=== PATIENT | female | born 1995 | race Caucasian/White ===

== ENCOUNTER 2019-07-23 09:17 | Emergency (ER) | payer OTHER ==
--- NOTE | 2019-07-23 09:35 | ED Physician Documentation ---
PD HPI FEMALE - Stated complaint Stated Complaint: FEM - Chief complaint Chief Complaint: General - History obtained from History obtained from: Patient - History of Present Illness Timing - onset: How many days ago (few) Timing - duration: Days (few) Timing - details: Gradual onset, Still present Associated symptoms: Vaginal pain, Genital sore/lesion (Redness and swelling and tenderness at the left lower labial area consistent with prior Bartholin abscess that she has had. She has had a into the incised and drained couple of times in the past but not for a few years.). 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) - Past Surgical History Past Surgical History: No - Present Medications Home Medications: Ambulatory Orders Medication Instructions Recorded Confirmed Doxycycline Hyclate 100 mg PO BID #15 capsule 07/23/19 Fluoxetine HCl [Prozac] 20 mg PO DAILY 07/23/19 07/23/19 Naproxen 500 mg PO BID #20 tablet 07/23/19 Tramadol HCl 50 mg PO Q6H PRN #15 tablet 07/23/19 - Allergies Allergies/Adverse Reactions: Allergies Allergy/AdvReac Type Severity Reaction Status Date / Time No Known Drug Allergies Allergy Verified 07/23/19 09:24 - Social History Does the pt smoke?: No Smoking Status: Never smoker Does the pt drink ETOH?: Yes - Immunizations Immunizations are current?: Yes PD ED PE NORMAL - Vitals Vital signs reviewed: Yes - General General: Alert and oriented X 3, Well developed/nourished - Abdomen Abdomen: Soft, Non tender - Female 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 The right side is normal. There is no obvious drainage.) - Rectal Rectal: Deferred - Back Back: No CVA TTP - Derm Derm: Normal color, Warm and dry Results - Vitals Vitals: Vital Signs - 24 hr 07/23/19 07/23/19 09:22 11:31 Temperature 36.6 C Heart Rate 86 68 Respiratory 16 18 Rate Blood Pressure 116/62 102/69 O2 Saturation 98 99 Oxygen O2 Source Room air Procedures - Abscess I&D (location) left lower labial Preparation: Lidocaine 1%, With epi, LET Incision: Incised with scalpel, Purulent drainage, Irrigated, Culture obtained. No: Packed (Word catheter placed in through incision) Other: Pt tolerated well, Dressing applied, Antibiotic prescribed PD MEDICAL DECISION MAKING - ED course Complexity details: considered differential (Has abrupt swelling and tenderness in the left lower labial area consistent with a Bartholin abscess. We will perform I&D and place a catheter.), d/w patient Departure - Departure Disposition: 01 Home, Self Care Clinical Impression: Bartholin's gland abscess Condition: Stable Record reviewed to determine appropriate education?: Yes Instructions: ED Bartholins Cyst IandD Prescriptions: Doxycycline Hyclate 100 mg PO BID #15 capsule Naproxen 500 mg PO BID #20 tablet Tramadol HCl 50 mg PO Q6H PRN #15 tablet PRN Reason: Pain Comments: Warm soaks to the area periodically once or twice daily. Try to keep the catheter in place until follow-up on Friday. This helps promote further drainage of the purulence until the infection is cleared. Naproxen and inflammatory twice daily for a week. Doxycycline antibiotic twice daily for a week. Add Tylenol or tramadol if needed for pain. Follow-up next Friday as scheduled. Discharge Date/Time: 07/23/19 11:31
[2019-07-23] MEDS ORDERED: DOXYCYCLINE 100 MG TABLET PO STA (10:08)
[2019-07-23] MEDS ORDERED: HYDROcod/ACETAM 5/325 MG TABLET PO STA (10:08)
[2019-07-23] MEDS ORDERED: LIDOCAINE-EPINEPH-TETRACAINE 3 ML SYRINGE TOP STA (10:08)
[2019-07-23] MEDS ORDERED: IBUPROFEN 600 MG TABLET PO STA (10:08)
[2019-07-23 11:31] VITALS: BP 102/69
== END 2019-07-23 11:31 | disposition home or self-care (01) ==
LOC: ED 09:17
DX: N75.1 Abscess of Bartholin's gland (principal)
CPT/HCPCS: 56420; 99282; 99284; A9270

== ENCOUNTER 2020-01-12 20:05 | Emergency (ER) | payer OTHER ==
[2020-01-12 20:12] VITALS: BP 122/66
[2020-01-12 20:26] LABS: BILIRUBIN,URINE NEGATIVE (NEGATIVE); GLUCOSE, URINE (UA) NEGATIVE (NEGATIVE); KETONES,URINE (UA) NEGATIVE (NEGATIVE); LEUKOCYTE ESTERASE, URINE TRACE (NEGATIVE); NITRITE,URINE NEGATIVE (NEGATIVE); OCCULT BLOOD,URINE NEGATIVE (NEGATIVE); PH,URINE 6.5 PH (5.0-7.5); PROTEIN,URINE NEGATIVE (NEGATIVE); UROBILINOGEN,URINE 0.2 (NORMAL) E.U./dL (NORMAL)
[2020-01-12 20:35] LABS: CLARITY,URINE CLEAR (CLEAR); HCG UR QUAL NEGATIVE
[2020-01-12 20:36] LABS: BACTERIA,URINE Rare /HPF (None Seen); RBC,URINE 0-5 /HPF (0-5); SQUAMOUS EPITHELIAL CELL,UR FEW Squamous (<= Few)
--- NOTE | 2020-01-12 20:46 | ED Physician Documentation ---
PD HPI FEMALE - Stated complaint Stated Complaint: F - Chief complaint Chief Complaint: Abd Pain - History obtained from History obtained from: Patient - History of Present Illness Timing - onset: Today Timing - details: Abrupt onset, Still present Contributing factors: IUD, Condoms (sometimes, without any prior latex sensitivity, and had not had condom use recently), Sexually active. 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 Fluconazole [Diflucan] 150 mg PO Q3D #2 tablet 01/12/20 Metronidazole [Flagyl] 500 mg PO BID #14 tablet 01/12/20 - Allergies Allergies/Adverse Reactions: Allergies Allergy/AdvReac Type Severity Reaction Status Date / Time No Known Drug Allergies Allergy Verified 01/12/20 20:12 - Social History Does the pt smoke?: No Smoking Status: Never smoker Does the pt drink ETOH?: Yes - Immunizations Immunizations are current?: Yes PD ED PE NORMAL - Vitals Vital signs reviewed: Yes - General General: Alert and oriented X 3, No acute distress, Well developed/nourished - Abdomen Abdomen: Normal bowel sounds, Soft, Non tender - 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 Milk white in labial folds, c/w yeast. Vault with milkier discharge and some odor likely c/w BV. No purulent discharge per se. ) - Rectal Rectal: Deferred Results - Vitals Vitals: Vital Signs - 24 hr 01/12/20 01/12/20 20:08 22:10 Temperature 36.9 C Heart Rate 73 73 Respiratory 16 16 Rate Blood Pressure 122/66 122/66 O2 Saturation 100 100 Oxygen O2 Source Room air - Labs Labs: Laboratory Tests 01/12/20 01/12/20 01/12/20 20:20 21:33 21:33 Urine Color YELLOW Urine Clarity CLEAR Urine pH 6.5 Ur Specific [place] 1.015 Urine Protein NEGATIVE Urine Glucose (UA) NEGATIVE Urine Ketones NEGATIVE Urine Occult Blood NEGATIVE Urine Nitrite NEGATIVE Urine Bilirubin NEGATIVE Urine Urobilinogen 0.2 (NORMAL) Ur Leukocyte Esterase TRACE H Urine RBC 0-5 Urine WBC 4-5 Ur Squamous Epith Cells FEW Squamous Urine Bacteria Rare Ur Microscopic Review INDICATED Urine Culture Comments INDICATED Urine HCG, Qual NEGATIVE C. glabrata (PCR) INDETERMINATE ERROR A C. krusei (PCR) INDETERMINATE ERROR A Karen species DNA INDETERMINATE ERROR A Chlam trachomat DNA PCR NEGATIVE N.gonorrhoeae DNA (PCR) NEGATIVE T. vaginalis (PCR) NEGATIVE INDETERMINATE ERROR A Bact Vaginosis (PCR) POSITIVE A PD MEDICAL DECISION MAKING - ED course Complexity details: considered differential (the redness/swelling of labia seems likely yeast. There is milkier discharge in vault though, that looks more likely BV. ), d/w patient Departure - Departure Disposition: 01 Home, Self Care Clinical Impression: Labial irritation, Candidal vulvovaginitis Vaginitis Qualifiers: Chronicity: acute Qualified Code(s): N76.0 - Acute vaginitis Condition: Stable Record reviewed to determine appropriate education?: Yes Instructions: ED Vaginosis Bacterial, ED Vaginal Infec Fungal Karen Follow-Up: Derick Godfrey MD [Primary Care Provider] - Prescriptions: Clotrimazole/Betamethasone Dip [Lotrisone Cream] 1 applic TP BID 5 Days #15 cream..g. Fluconazole [Diflucan] 150 mg PO Q3D #2 tablet Metronidazole [Flagyl] 500 mg PO BID #14 tablet Comments: The labial and outer vaginal area looks more likely yeast infection. Take the Chlortrimazole tablet every 3 days for 2 more doses. You did receive 1 tonight. You can also use topical Lotrisone which is an antifungal along with an anti- inflammatory twice daily for the next several days on the labial area that is red and swollen. I do not see any area that looks like a bacterial cyst at the labia. The vaginal vault has more of an appearance of a bacterial vaginosis. These can occur together and so I would also have you take metronidazole antibiotic twice daily for a week. The vaginal tests we obtained will result in a day or 2 and will call if we need to modify or add to the treatments. Discharge Date/Time: 01/12/20 22:38
[2020-01-12] MEDS ORDERED: FLUCONAZOLE 100 MG TABLET PO STA (21:35)
[2020-01-12] MEDS ORDERED: IBUPROFEN 600 MG TABLET PO STA (21:35)
[2020-01-12] MEDS ORDERED: metroNIDAZOLE 250 MG TABLET PO STA (21:35)
[2020-01-12] MEDS ORDERED: LIDOCAINE JELLY 2% 5 ML TUBE TOP STA (21:36)
[2020-01-13 00:07] LABS: TRICHOMONAS VAGINALIS DNA NEGATIVE (NEGATIVE)
[2020-01-13 02:08] LABS: CANDIDA KRUSEI DNA INDETERMINATE ERROR (NEGATIVE); TRICHOMONAS VAGINALIS DNA INDETERMINATE ERROR (NEGATIVE)
[2020-01-13 02:09] LABS: CANDIDA GROUP DNA INDETERMINATE ERROR (NEGATIVE)
== END 2020-01-12 22:38 | disposition home or self-care (01) ==
LOC: ED 20:05
DX: B37.3 Candidiasis of vulva and vagina (principal); N76.0 Acute vaginitis
CPT/HCPCS: 81001; 81025; 87086; 87481; 87491; 87591; 87661; 87801; 99283; A9270; J3490; 81003

== ENCOUNTER 2020-02-27 14:20 | Emergency (ER) | payer OTHER ==
[2020-02-27 14:32] VITALS: BP 105/61
--- NOTE | 2020-02-27 14:37 | ED Physician Documentation ---
PD HPI LOWER EXT INJURY - Stated complaint Stated Complaint: LT FOOT INJURY - Chief complaint Chief Complaint: Ext Problem - History obtained from History obtained from: Patient - History of Present Illness PD HPI LOW EXT INJURY LOCATION: Left, Ankle Type of injury: Twist (She was knocked into by 2 large dogs at the dog park and that caused a twisting of her left ankle with pain and swelling laterally. Hurts to walk.) Where [place] Timing - onset: Today Timing - details: Abrupt onset, Still present Worsened by: Moving, Palpating, Other (walking) Associated symptoms: Swelling. 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 Psych: Depression, Anxiety - Past Surgical History Past Surgical History: No - Present Medications Home Medications: Ambulatory Orders Medication Instructions Recorded Confirmed Fluoxetine HCl [Prozac] 20 mg PO DAILY 07/23/19 07/23/19 Primidone 50 mg PO 02/27/20 02/27/20 traZODone [Desyrel] 50 mg PO HS 02/27/20 02/27/20 - Allergies Allergies/Adverse Reactions: Allergies Allergy/AdvReac Type Severity Reaction Status Date / Time No Known Drug Allergies Allergy Verified 01/12/20 20:12 - Social History Does the pt smoke?: No Smoking Status: Never smoker Does the pt drink ETOH?: Yes - Immunizations Immunizations are current?: Yes PD ED PE NORMAL - Vitals Vital signs reviewed: Yes - General General: Alert and oriented X 3, No acute distress, Well developed/nourished - Derm Derm: Normal color, Warm and dry - Extremities Extremities: Other (The left ankle is tender along the anterolateral aspect and does have some pain with inversion stress testing but no noted gross laxity. The medial aspect is nontender. The Achilles is firm and intact with good plantar flexion. The toes and midfoot are without any focal tenderness. There is some swelling on the anterolateral aspect of the ankle.) - Neuro Neuro: No motor deficit, No sensory deficit Results - Vitals Vitals: Vital Signs - 24 hr 02/27/20 14:25 Temperature 37.6 C H Heart Rate 81 Respiratory 18 Rate Blood Pressure 105/61 O2 Saturation 98 Oxygen O2 Source Room air - Rads (name of study) left ankle Radiology: Prelim report reviewed (no fractures nor dislocations), See rad report PD MEDICAL DECISION MAKING - ED course Complexity details: reviewed results, considered differential, d/w patient Departure - Departure Disposition: 01 Home, Self Care Clinical Impression: Ankle sprain Qualifiers: Encounter type: initial encounter Involved ligament of ankle: anterior talofibular ligament Laterality: left Qualified Code(s): S93.492A - Sprain of other ligament of left ankle, initial encounter Condition: Stable Record reviewed to determine appropriate education?: Yes Instructions: ED Sprain Ankle Follow-Up: Derick Godfrey MD [Primary Care Provider] - Comments: No fractures on x-ray. Use the ankle brace when up and around. Add crutches if needed for comfort of walking with either partial or nonweightbearing. Progress weightbearing as able. Ice elevate and rest the ankle often today and tomorrow for swelling. Ibuprofen 3 times a day for pains and add Tylenol if needed. Recheck if not improving over the next several days and resolved within a week. Use ankle brace when up and around for that week timeframe. Discharge Date/Time: 02/27/20 15:29
[2020-02-27] MEDS ORDERED: ACETAMINOPHEN 325 MG TABLET PO STA (15:00)
[2020-02-27] MEDS ORDERED: IBUPROFEN 600 MG TABLET PO STA (15:00)
--- NOTE | 2020-02-27 15:03 | XRAY Report ---
Reason: Trauma, pain Procedure Date: 02/27/2020 Accession Number: [id number] / [id number] Procedure: XR - Ankle 3 View LT CPT Code: Final Report FULL RESULT: EXAM: LEFT ANKLE RADIOGRAPHY EXAM DATE: 02/27/2020 02:51 PM. CLINICAL HISTORY: Trauma, pain. COMPARISON: None. TECHNIQUE: 3 views. FINDINGS: Bones: Bony mineralization appears appropriate. No acute fracture or focal osseous destruction. Joints: Alignment and joint spaces appear maintained. Soft Tissues: No radiopaque foreign body. IMPRESSION: No acute fracture or dislocation. RADIA
== END 2020-02-27 15:29 | disposition home or self-care (01) ==
LOC: ED 14:20
DX: S93.492A Sprain of other ligament of left ankle, initial encounter (principal); W54.1XXA Struck by dog, initial encounter; Y93.K1 Activity, walking an animal; Y92.830 Public park as the place of occurrence of the external cause
CPT/HCPCS: 73610; 99283; A9270

== ENCOUNTER 2020-05-14 08:52 | Emergency (ER) | payer OTHER ==
[2020-05-14] MEDS ORDERED: BUFFERED LIDOCAINE 10 ML SYRINGE SUBQ STA (09:04)
--- NOTE | 2020-05-14 09:04 | ED Physician Documentation ---
History of Present Illness - Stated complaint Stated Complaint: FEMALE - Chief complaint Chief Complaint: General - History obtained from History obtained from: Patient (24-year-old woman has had a recurrent left-sided Bartholin cyst. She has had it marsupialized twice, once about 8 months ago and once about a month ago. Despite that it started to become swollen yesterday and more painful overnight today. No fevers. 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 Psych: Depression, Anxiety - Past Surgical History Past Surgical History: No - Present Medications Home Medications: Ambulatory Orders Medication Instructions Recorded Confirmed Fluoxetine HCl [Prozac] 20 mg PO DAILY 07/23/19 07/23/19 Primidone 50 mg PO 02/27/20 02/27/20 traZODone [Desyrel] 50 mg PO HS 02/27/20 02/27/20 Amox/Clav 875/125 [Augmentin] 1 each PO Q12H #20 tablet 05/14/20 - Allergies Allergies/Adverse Reactions: Allergies Allergy/AdvReac Type Severity Reaction Status Date / Time No Known Drug Allergies Allergy Verified 01/12/20 20:12 - Social History Does the pt smoke?: No Smoking Status: Never smoker Does the pt drink ETOH?: Yes - Immunizations Immunizations are current?: Yes PD ED PE NORMAL - Vitals Vital signs reviewed: Yes - General General: Alert and oriented X 3, No acute distress - Abdomen Abdomen: Soft, Non tender - Female 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 : 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 (All exams and interventions were done with Odilia the nurse at the bedside and chaperoning), Other (Swollen left Bartholin's cyst, old marsupialization scar visualized but not draining) - Neuro Neuro: Alert and oriented X 3, Normal speech Results - Vitals Vitals: Vital Signs - 24 hr 05/14/20 09:01 Temperature 36.8 C Heart Rate 80 Respiratory 16 Rate Blood Pressure 123/83 H O2 Saturation 100 Oxygen O2 Source Room air Procedures - Abscess I&D (location) Left bartholins cyst Preparation: Betadine, Lidocaine 1% Incision: Incised with scalpel, Packed (With Word catheter) Other: Pt tolerated well, Dressing applied, Antibiotic prescribed Departure - Departure Disposition: Home, Self Care Clinical Impression: Bartholin's gland abscess Condition: Good Record reviewed to determine appropriate education?: Yes Instructions: ED Bartholins Cyst IandD Prescriptions: Amox/Clav 875/125 [Augmentin] 1 each PO Q12H #20 tablet Comments: You were seen today for a Bartholin's cyst. We incised it and placed a Word catheter. Follow-up with your pneumatic jack operator, next available appointment. Return for new or worsening symptoms.
[2020-05-14 09:36] VITALS: BP 119/74
== END 2020-05-14 09:36 | disposition home or self-care (01) ==
LOC: ED 08:52
DX: N75.1 Abscess of Bartholin's gland (principal)
CPT/HCPCS: 56420